=== PATIENT | female | born 1970 | race Caucasian/White ===

== ENCOUNTER 2017-12-10 03:43 | Emergency (ER) | payer BC ==
--- NOTE | 2017-12-10 04:04 | EDM.PDOC ---
ED HPI GENERAL MEDICAL PROBLEM - General Chief Complaint: Headache Stated Complaint: Migraine Time Seen by Provider: 12/10/17 03:55 Source of Information: Reports: Patient, Family (), Old Records ([facility] [place] chart/EMR) History Limitations: Reports: Other (Headache) - History of Present Illness INITIAL COMMENTS - FREE TEXT/NARRATIVE: Patient was brought to the emergency room via private automobile by her for evaluation of a bilateral frontal 10/10 migraine headache associated with some photophobia and nausea with no emesis to this point. She rarely has headaches usually only every several years with last ER evaluation for her headache in this facility in 2007. Her headache started at about 21:00 hours shortly after she was playing volleyball this past evening with no history of head injury, etc. The patient did take some Aleve, Topamax and Tylenol earlier this evening, however exact time not known by the patient at this time. No recent history of abdominal pain, heartburn, diarrhea, melena, gross hematochezia, or any food intolerance, including fatty foods, etc.. The patient also denies any recent fever, cough, wheezing, dyspnea, etc.. Onset: Gradual, Unknown/Unsure Onset Date: 12/09/17 Onset Time: 21:00 Duration: Constant, Getting Worse Location: Reports: Head Quality: Reports: Same as Previous Episode, Throbbing Severity: Severe Improves with: Reports: None Worsens with: Reports: None Context: Reports: Other (As above) Associated Symptoms: Reports: Headaches, Nausea/Vomiting. Denies: Fever/Chills Treatments WINDOWS SYSTEM ADMIN: Reports: Acetaminophen, NSAIDS Headache Pain Score (Numeric/FACES): 10 - Related Data Allergies Allergy/AdvReac Type Severity Reaction Status Date / Time mushroom Allergy Other Verified 12/10/17 03:45 Home Meds: Home Meds Acetaminophen [Tylenol Extra Strength] 1,000 mg PO Q6H PRN 12/10/17 [History] Chlorthalidone 25 mg PO DAILY PRN 12/10/17 [History] Naproxen Sodium [Aleve] 2 tab PO ASDIRECTED PRN 12/10/17 [History] Phentermine HCl 37.5 mg PO DAILY 12/10/17 [History] Solifenacin [Vesicare] 5 mg PO DAILY 12/10/17 [History] Topiramate 25 mg PO BID 12/10/17 [History] Past Medical History Musculoskeletal History: Reports: Osteoarthritis, Other (See Below) Other Musculoskeletal History: Chronic bilateral knee pain. 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 Neurological History: Reports: Migraines - Past Surgical History GI Surgical History: Reports: Appendectomy, Other (See Below) Other GI Surgeries/Procedures: Appendectomy in January 2004 Female Surgical History: Reports: Hysterectomy Musculoskeletal Surgical History: Reports: Arthroscopic Knee, Other (See Below) Other Musculoskeletal Surgeries/Procedures:: Right knee arthroscopic repair of medial meniscal tear in April 2017 - Past Imaging History Past Imaging History: Reports: CAT Scan (CT of the left ankle on 06/03/07), Mammogram (Last mammogram 03/13/09), MRI (MRI of the right knee on 03/01/17. MRI of the left knee on 07/08/07 and 05/31/17.), Ultrasound (Ultrasound of the left knee on 05/30/12.) Social & Family History - Tobacco Use Smoking Status *Q: Former Smoker Tobacco Use Within Last Twelve Months: No Used Tobacco, but Quit: No Smoking Cessation Information Provided To Patient: No Second Hand Smoke Exposure: No Second Hand Smoke Education Provided: No - Living Situation & Occupation Living situation: Reports: Occupation: Employed ([employer]) ED ROS GENERAL - Review of Systems Review Of Systems: ROS reveals no pertinent complaints other than HPI. - Physical Exam Exam: See Below Exam Limited By: Uncooperative (Secondary to headache) General Appearance: Alert, WD/WN, Mild Distress (Secondary to headache) Eye Exam: Bilateral Eye: EOMI, Normal Inspection, PERRL Ears: Normal External Exam, Normal Canal, Hearing Grossly Normal, Normal TMs Nose: Normal Inspection, Normal Mucosa, No Blood Head Exam: Atraumatic, Normocephalic Neck: Normal Inspection, Supple, Non-Tender, Full Range of Motion. No: Lymphadenopathy (L), Lymphadenopathy (R) Respiratory/Chest: No Respiratory Distress, Lungs Clear, Normal Breath Sounds, No Accessory Muscle Use, Chest Non-Tender. No: Pleural Rub, Retractions Cardiovascular: Normal Peripheral Pulses, Regular Rate, Rhythm, No Edema, No Gallop, No JVD, No Murmur, No Rub. No: Gallop/S3, Gallop/S4, Friction Rub GI/Abdominal: Normal Bowel Sounds, Soft, Non-Tender, No Organomegaly, No Distention, No Abnormal Bruit, No Mass. No: Guarding (Female) Exam: Deferred Rectal (Female) Exam: Deferred Neuro Exam (Abbreviated): Alert, Oriented, CN II-XII Intact, Normal Cognition, Normal Gait, Normal Reflexes, No Motor/Sensory Deficits Back Exam: Normal Inspection, Full Range of Motion, NT Extremities: Normal Inspection, Normal Range of Motion, Non-Tender, No Pedal Edema, Normal Capillary Refill Psychiatric: Normal Affect, Normal Mood Skin Exam: Warm, Dry, Intact, Normal Color, No Rash Course - Vital Signs Last Recorded V/S: Last Vital Signs Temp 36.4 C 12/10/17 04:00 Pulse 72 12/10/17 04:31 Resp 12 12/10/17 04:45 BP 104/68 12/10/17 04:45 Pulse Ox 100 12/10/17 04:45 Vital Signs - 24 hr 12/10/17 12/10/17 12/10/17 04:00 04:31 04:45 Temperature [ 36.4 C Temporal] Pulse, 85 72 Peripheral [ Right Pulse Oximetry] Respiratory 18 14 12 Rate Blood Pressure 114/71 [Left Upper Arm ] Blood Pressure 112/72 104/68 [Right Upper Arm] O2 Sat by Pulse 99 100 100 Oximetry - Orders/Labs/Meds Orders: Active Orders 24 hr Category Date Time Status Peripheral IV Care [RC] . DIRECTED Care 12/10/17 04:05 Active Sodium Chloride 0.9% [Saline Flush] Med 12/10/17 04:05 Active 10 ml FLUSH ASDIRECTED PRN Obtain Past Medical Record [OM.PC] Routine Oth 12/10/17 04:04 Active Peripheral IV Insertion Adult [OM.PC] Routine Oth 12/10/17 04:04 Ordered Medication Orders Sodium Chloride (Saline Flush) 10 ml FLUSH ASDIRECTED PRN PRN Reason: Keep Vein Open Last Admin: 12/10/17 04:14 Dose: 10 ml Labs: None Meds: Medications Generic Name Dose Route Start Last Admin Trade Name Freq PRN Reason Stop Dose Admin Sodium Chloride 10 ml 12/10/17 04:05 12/10/17 04:14 Saline Flush FLUSH 10 ml ASDIRECTED PRN Administration Keep Vein Open Discontinued Medications Generic Name Dose Route Start Last Admin Trade Name Freq PRN Reason Stop Dose Admin Diphenhydramine HCl 50 mg 12/10/17 04:05 12/10/17 04:14 Benadryl IVPUSH 12/10/17 04:06 50 mg ONETIME ONE Administration Ketorolac Tromethamine 30 mg 12/10/17 04:05 12/10/17 04:14 Toradol IVPUSH 12/10/17 04:06 30 mg ONETIME ONE Administration Lorazepam 1 mg 12/10/17 04:06 12/10/17 04:13 Ativan IVPUSH 12/10/17 04:07 1 mg ONETIME ONE Administration Metoclopramide HCl 20 mg 12/10/17 04:05 12/10/17 04:14 Reglan IVPUSH 12/10/17 04:06 20 mg ONETIME ONE Administration - Radiology Interpretation Free Text/Narrative:: None Departure - Departure Time of Disposition: 05:05 Disposition: Home, Self-Care 01 Condition: Good Clinical Impression: Migraine - Discharge Information Instructions: Migraine Headache, [id number] Referrals: Yin Babcock NP [Primary Care Provider] - Forms: ED Department Discharge, ED Return to Work/School Form Additional Instructions: 1. Follow up with your regular provider in 1-3 days as needed, if symptoms persist. Bring these discharge instructions with you to that visit.. 2. Next dose of Aleve in 6 hours secondary to medications given in the emergency room. 3. Ice packs to head and neck, dark and quiet room, etc. as directed until headache resolves. 4. Sedation precautions with no driving, etc. for 12 hours because of emergency room medications. 5. Immediately after this visit verify that your cellular telephone's voicemail has been activated and is empty. Also verify that your home telephone 's answering machine is operating properly and has space to receive messages. Note that it is sometimes necessary for us to be able to contact you at a later date to discuss your medical care. 6. Strongly consider CT scan of head with next recurrence of your migraine headache and update of your mammogram when possible. 7. Work excuse- See Form - Problem List & Annotations (1) Migraine SNOMED Code(s): 07476006 Code(s): G43.909 - MIGRAINE, UNSP, NOT INTRACTABLE, WITHOUT STATUS MIGRAINOSUS Status: Acute Priority: High Onset Date: 12/10/17 Annotation /Comment:: Overall good response to aggressive therapy in the emergency room as above. Work excuse provided. is aware of sedation precautions, etc.. Various therapeutic options were discussed with patient, who does not wish to have a CT scan of the head at this time. Note that she did not follow-up with her previously recommended CT scan of the head on 07/04/08 facility. Continue to observe closely with CT strongly recommended with next migraine headache and/ or any change in character of her headaches. neurological consultation, etc. ISIDRO if headache frequency - Problem List Review Problem List Initiated/Reviewed/Updated: Yes - My Orders Last 24 Hours: My Active Orders 12/10/17 04:04 Obtain Past Medical Record [OM.PC] Routine Peripheral IV Insertion Adult [OM.PC] Routine 12/10/17 04:05 Peripheral IV Care [RC] . DIRECTED Sodium Chloride 0.9% [Saline Flush] 10 ml FLUSH ASDIRECTED PRN - Assessment/Plan Last 24 Hours: My Active Orders 12/10/17 04:04 Obtain Past Medical Record [OM.PC] Routine Peripheral IV Insertion Adult [OM.PC] Routine 12/10/17 04:05 Peripheral IV Care [RC] . DIRECTED Sodium Chloride 0.9% [Saline Flush] 10 ml FLUSH ASDIRECTED PRN Assessment:: As above Plan: As above. Extensive precautions were given to the patient and her , who are in agreement with the treatment plan. See Patient Instructions for further treatment and plan.
[2017-12-10] MEDS ORDERED: diphenhydrAMINE 50 MG/ML SDV IVPUSH ONE (04:05)
[2017-12-10] MEDS ORDERED: Sodium Chloride 0.9% 10 ML Syringe FLUSH PRN (04:05)
[2017-12-10] MEDS ORDERED: Metoclopramide 10 MG/2 ML SDV IVPUSH ONE (04:05)
[2017-12-10] MEDS ORDERED: Ketorolac 30 MG/ML SDV IVPUSH ONE (04:05)
[2017-12-10] MEDS ORDERED: LORazepam 2 MG/ML SDV IVPUSH ONE (04:06)
[2017-12-10 04:45] VITALS: BP 104/68
== END 2017-12-10 05:05 | disposition home or self-care (01) ==
LOC: LL.ED 03:43
DX: G43.909 Migraine, unspecified, not intractable, without status migrainosus (principal); Z91.018 Allergy to other foods; Z79.899 Other long term (current) drug therapy; Z87.891 Personal history of nicotine dependence
CPT/HCPCS: 96374; 96375; 99284; J1200; J1885; J2060; J2765; J7050

== ENCOUNTER 2024-02-06 21:41 | Emergency (ER) | payer BC ==
[2024-02-06] MEDS: Ketorolac 30 MG/ML SDV IM ONE (22:03)
[2024-02-06] MEDS: Promethazine 25 MG/ML SDV IM ONE (22:03)
[2024-02-06] MEDS: Ondansetron 4 MG Tab.DIS PO ONE (22:04)
[2024-02-06] MEDS: HYDROmorphone 0.5 MG/0.5 ML Syringe IM ONE ×2 (22:04→22:46)
[2024-02-06 22:16] VITALS: BP 122/73; PULSE 83
[2024-02-06] MEDS: Take Home: Ondansetron 4 MG Tab.DIS, 5 Tab Pack PO ONE (22:28)
[2024-02-06] MEDS: Take Home: Acetaminophen/HYDROcodone 325-5 MG, 5 Tab Pack PO ONE (22:28)
[2024-02-06] MEDS: Take Home: Acetaminophen/HYDROcodone 325-10 MG, 5 Tab Pack PO ONE (22:39)
== END 2024-02-06 23:00 | disposition home or self-care (01) ==
LOC: LL.ED 21:41
DX: M25.562 Pain in left knee (principal); Z86.16 Personal history of COVID-19; Z79.899 Other long term (current) drug therapy; Z88.5 Allergy status to narcotic agent; Z91.018 Allergy to other foods
CPT/HCPCS: 96372; 99283; A9270-GY; J1170; J1885; J2550; Q0162